=== PATIENT | male | born 1975 | race Caucasian/White ===

== ENCOUNTER 2016-10-11 19:59 | Emergency (ER) | payer OTHER ==
[~2016-10-11] VITALS: Ht 180.3 cm; Wt 122.5 kg
[2016-10-11 20:01] VITALS: BP 155/99
--- NOTE | 2016-10-11 20:10 | NUR ---
Dr. Vogt evaluating patient in triage.
--- NOTE | 2016-10-11 20:14 | NUR ---
PT IS A 40Y/M C/O LEFT EYE REDNESS AND PAIN, STARTED TODAY
[2016-10-11 20:19] VITALS: BP 146/89
--- NOTE | 2016-10-11 20:20 | NUR ---
Patient discharged with v/s stable. Written and verbal after care instructions given and explained. Patient alert, oriented and verbalized understanding of instructions. Ambulatory with steady gait. All questions addressed prior to discharge. ID band removed. Patient advised to follow up with PMD. Rx of TYLENOL 325MG PO, TOBRAMYCIN 0.3% OPTHALMIC given. Patient educated on indication of medication including possible reaction and side effects. Opportunity to ask questions provided and answered.
== END 2016-10-11 20:20 | disposition home or self-care (01) ==
LOC: MED 19:59
DX: H10.9 Unspecified conjunctivitis (principal)

== ENCOUNTER 2023-12-02 19:58 | Emergency (ER) | payer BC, OTHER ==
[~2023-12-02] VITALS: Ht 188 cm; Wt 138.3 kg
[2023-12-02 20:10] VITALS: BP 145/80; PULSE 65; RESP 19; TEMP 97.8; O2SAT 97
[2023-12-02] MEDS: ACETAMINOPHEN EXTRA STRENGTH 500 MG TAB PO ONE (22:35)
[2023-12-02] MEDS: HYDROcodone/APAP 5/325 MG 1 TAB TAB PO ONE (22:36)
[2023-12-02] MEDS: IBUPROFEN 600 MG TAB PO ONE (22:36)
[2023-12-02] MEDS ORDERED: IBUP-2213 PO (22:59)
== END 2023-12-02 23:10 | disposition home or self-care (01) ==
LOC: MED 19:58
DX: S52.121A Displaced fracture of head of right radius, initial encounter for closed fracture (principal); Z79.899 Other long term (current) drug therapy; W01.0XXA Fall on same level from slipping, tripping and stumbling without subsequent striking against object, initial encounter; Y92.89 Other specified places as the place of occurrence of the external cause; Y93.89 Activity, other specified; Y99.8 Other external cause status
CPT/HCPCS: 73030; 73080; 73130; 99284